=== PATIENT | female | born 1970 | race Caucasian/White ===

== ENCOUNTER → 2016-08-11 | Outpatient (CLI) | payer BC ==
--- NOTE | 2016-08-14 14:54 | XR ---
Left shoulder HISTORY: Pain 3 views of the left shoulder No comparisons Bone mineralization and alignment are maintained. Mild joint space loss of the glenohumeral joint, le ft lung apex as visualized is normal. IMPRESSION: No acute abnormality. There may be some mild joint space loss, shoulder MRI may be of shayy efit
--- NOTE | 2016-08-14 14:55 | XR ---
Lumbosacral spine HISTORY: Chronic low back pain 5 views of the lumbosacral spine There is no spondylolysis or spondylolisthesis. Lumbar vertebral bodies show preserved height and ali gnment, bone mineralization. There is loss of disc height L4-5, associated spondylosis. Sclerosis pre sent in the posterior elements. There is a mild spinal curvature. IMPRESSION: Degenerative disc disease.
--- NOTE | 2016-08-14 14:56 | XR ---
Cervical spine HISTORY: Neck pain 5 views of the cervical spine cervical vertebral bodies show preserved height and bone mineralization. There is some foraminal encr oachment due to lateral extension endplate disc complex C5-6 bilaterally. There is reversal the rosa l cervical lordosis. Minimal anterolisthesis grade 1 C4-5. Loss of disc height C5-6 with associated s pondylosis. Odontoid view is somewhat limited. There is facet arthropathy. IMPRESSION: Degenerative disc disease. Loss of lordosis may be due to muscle spasm.
== END ==
LOC: RADXRYALE 10:41
PROVIDERS: ATTEND Internal Medicine
DX: M51.36 Other intervertebral disc degeneration, lumbar region (principal); M25.512 Pain in left shoulder; M50.30 Other cervical disc degeneration, unspecified cervical region
CPT/HCPCS: 72050; 72110

== ENCOUNTER → 2017-11-14 | Outpatient (CLI) | payer BC ==
--- NOTE | 2017-11-14 11:30 | US ---
EXAMINATION TYPE: US abdomen comp/pelvis limited DATE OF EXAM: 11/14/2017 COMPARISON: NONE CLINICAL HISTORY: R39.11 Urinary hesitancy,R10.11 Rt upper quad pain. RUQ pain, increase urine freque ncy with the feeling bladder doesn't completely empty. NPO. EXAM MEASUREMENTS: Liver Length: 19.3 cm Gallbladder Wall: 0.2 cm CBD: 0.6 cm CHD: 0.4 cm Spleen: 10.5 cm Right Kidney: 10.9 x 5.3 x 3.9 cm Left Kidney: 11.2 x 4.7 x 5.5 cm Post Void Residual: 168.3 mL Pancreas: wnl, main pancreatic duct = 1.9 mm Liver: Enlarged. Echogenic. Appears course. Gallbladder: wnl CBD: wnl CHD: wnl Spleen: wnl Right Kidney: wnl Left Kidney: wnl Upper IVC: wnl Abd Aorta: wnl Bladder: distended, wnl Bilateral Jets Seen Abnormal Post Void Residual (normal less than 50ml) Urinary bladder is sonolucent. IMPRESSION: 1. Mild hepatomegaly with mild fatty infiltration.
== END | disposition home or self-care (01) ==
LOC: RADUSWWP 08:19
PROVIDERS: ATTEND Internal Medicine
DX: K76.0 Fatty (change of) liver, not elsewhere classified (principal); R16.0 Hepatomegaly, not elsewhere classified; R10.11 Right upper quadrant pain; R39.11 Hesitancy of micturition
CPT/HCPCS: 76700; 76857

== ENCOUNTER → 2020-06-28 | Outpatient (CLI) | payer BC ==
--- NOTE | 2020-06-29 10:45 | US ---
EXAMINATION TYPE: US pelvis complete transvag DATE OF EXAM: 06/28/2020 COMPARISON: US 05/19/2015 CLINICAL HISTORY: N92.1 MENORRHAGIA WITH IRREG CYCLES. TECHNIQUE: . Transabdominal sonographic images of the pelvis were acquired. Transvaginal sonographi c images were medically necessary to better assess the following anatomy: uterus and ovaries Date of LMP: Unsure EXAM MEASUREMENTS: Uterus: 8.9 x 4.4 x 5.2 cm Endometrial Stripe: 1.4 cm Right Ovary: 4.1 x 3.2 x 2.5 cm Left Ovary: 2.4 x 1.6 x 2.4 cm 1. Uterus: Anteverted Heterogeneous 2. Endometrium: Upper limits of normal 3. Right Ovary: Cystic area visualized measuring 2.5 x 2.1 x 2.0 cm 4. Left Ovary: Cystic area visualized measuring 1.3 cm 5. Bilateral Adnexa: wnl 6. Posterior cul-de-sac: wnl IMPRESSION: 1. Nonspecific uterine heterogeneity. 2. Nonspecific ovarian lesions may reflect functional ovarian cysts and this can be confirmed with ul trasound in 6 weeks.
== END | disposition home or self-care (01) ==
LOC: RADUSWWP 15:24
PROVIDERS: ATTEND Internal Medicine
DX: N92.1 Excessive and frequent menstruation with irregular cycle (principal)
CPT/HCPCS: 76830; 76856

== ENCOUNTER → 2020-09-01 | Outpatient (CLI) | payer BC ==
[2020-09-01 14:33] LABS: Basophils % (A) 1 %; Eosinophils # (A) 0.1 k/uL (0-0.7); Eosinophils % (A) 2 %; HCT 37.9 % (34.0-46.0); HGB 12.6 gm/dL (11.4-16.0); Lymphocytes # (A) 2.1 k/uL (1.0-4.8); Lymphocytes % (A) 28 %; MCH 29.4 pg (25.0-35.0); MCHC 33.3 g/dL (31.0-37.0); MCV 88.4 fL (80.0-100.0); Mean Platelet Volume 9.3; Monocytes # (A) 0.6 k/uL (0-1.0); Monocytes % (A) 8 %; Neutrophils # (A) 4.6 k/uL (1.3-7.7); Neutrophils % (A) 60 %; Platelet Count 256 k/uL (150-450); RBC 4.29 m/uL (3.80-5.40); RDW 14.1 % (11.5-15.5); WBC 7.7 k/uL (3.8-10.6)
== END | disposition home or self-care (01) ==
LOC: LABPAT 13:09
PROVIDERS: ATTEND Obstetrics & Gynecology
DX: Z01.818 Encounter for other preprocedural examination (principal); N92.0 Excessive and frequent menstruation with regular cycle
CPT/HCPCS: 85025

== ENCOUNTER 2020-09-07 06:19 | Day surgery (SDC) | payer BC ==
[2020-09-02 13:29] VITALS: BMI 32.1
[~2020-09-07 06:19] MED LIST: DEXAMETHASONE SOD PHOSPHATE 4 MG/ML 1 ML VIAL IV ONE; LACTATED RINGERS 1,000 ML IV SCH; LIDOCAINE 1% (10MG/ML) FOR IV START INTRADERMA PRN; MIDAZOLAM 2 MG/2 ML VIAL IV PRN; ONDANSETRON 4 MG/2 ML VIAL IVP ONE; Pre Op ABX Message 1 EACH MISC MISCELLANE ONE
[2020-09-07] MEDS ORDERED: PROPOFOL 10 MG/ML 20 ML VIAL IV ONE (07:10)
[2020-09-07] MEDS ORDERED: KETOROLAC 15 MG/ML 1 ML VIAL ONE (07:10)
[2020-09-07] MEDS ORDERED: MIDAZOLAM 2 MG/2 ML VIAL ONE (07:10)
[2020-09-07] MEDS ORDERED: LIDOCAINE 1% INJ 10MG/ML (20 ML MDV) ONE (07:10)
[2020-09-07] MEDS ORDERED: fentaNYL (PF) 50 MCG/ML 2 ML AMP ONE (07:10)
[2020-09-07] MEDS: HYDROmorphone 0.5 MG/0.5 ML SYRINGE IVP PRN ×3 (08:15→08:50)
--- NOTE | 2020-09-07 08:21 | P.OP ---
Date of Procedure: 09/07/20 Preoperative Diagnosis: Menorrhagia Postoperative Diagnosis: Same, grade 3 uterine prolapse Procedure(s) Performed: Hysteroscopy, NovaSure endometrial ablation Anesthesia: GETA Surgeon: Lovely Hoffmann Estimated Blood Loss (ml): 10 IV fluids (ml): 300 Urine output (ml): 50 Pathology: none sent Condition: stable Disposition: PACU Operative Findings: Essentially normal-appearing uterine cavity, grade 2-3 uterine prolapse Description of Procedure: Patient is brought to the [facility] and suite where a general anesthetic is administered without difficulty. The appropriate timeout is performed to assure proper patient and procedural identification. Urine hCG is negative. Bladder is drained for approximately 50 mL of clear yellow urine. The perineal body is prepped and draped in usual sterile fashion. Examination under anesthesia reveals a small mobile anteverted uterus, negative adnexa bilaterally, grade 2-3 uterine prolapse. Weighted speculum was placed into the vagina and the anterior lip of the cervix is grasped with a double-tooth tenaculum. Uterus sounds to a depth of 9 cm in the anteverted position. The uterus is then gently and systematically dilated through the endocervical canal using Hanks dilators. Hysteroscope was placed and the cavity is diffused using sterile saline. Inspection of the cavity reveals a small amount of proliferative-type appearing tissue, no polyps fibroids or defects. Hysteroscope was removed. NovaSure wand is placed and seated properly. A uterine width of 4.6 cm, length 6.5 cm is measured and calibrated. The machine is properly enabled. For 53 seconds and a power of 164 W the procedure is carried out. When the machine shuts off the wand is reduced and removed. Hysteroscope was once again placed and the cavity is noted to be thoroughly blanched. All sponge needle and instrument counts are correct. Patient is brought back to the recovery room in very good condition with stable vital signs including a blood pressure 136/54, pulse 67, 99% O2 saturation. She is given Toradol prior to leaving the operative suite. She will follow-up with me in the office in 2 weeks.
[2020-09-07 08:44] VITALS: TEMP 96.8
[2020-09-07 09:16] VITALS: PULSE 89
[2020-09-07 09:48] VITALS: BP 150/85; RESP 18
== END 2020-09-07 09:49 | disposition home or self-care (01) ==
LOC: OR 06:19
PROVIDERS: ATTEND Obstetrics & Gynecology
DX: N92.0 Excessive and frequent menstruation with regular cycle (principal); N81.3 Complete uterovaginal prolapse; R93.89 Abnormal findings on diagnostic imaging of other specified body structures; F17.290 Nicotine dependence, other tobacco product, uncomplicated; Z79.3 Long term (current) use of hormonal contraceptives; Z79.899 Other long term (current) drug therapy; Z98.51 Tubal ligation status
CPT/HCPCS: 81025; 58563; J2250; J1100; J2405; J2001; J3010; J1885; J2704; J1170

== ENCOUNTER 2021-06-29 21:32 | Emergency (ER) | payer BC ==
[2021-06-29 21:38] VITALS: BP 144/79; PULSE 110; RESP 20; TEMP 98.8
[2021-06-29] MEDS ORDERED: methylPREDNISolone SOD SUCCI 125 MG/2 ML VIAL IM ONE (21:50)
[2021-06-29] MEDS ORDERED: diphenhydrAMINE 50 MG CAP PO STA (21:50)
[2021-06-29] MEDS ORDERED: FAMOTIDINE 20 MG TAB PO STA ×2 (21:50→21:51)
--- NOTE | 2021-06-29 21:54 | ED ---
General Adult HPI - General Chief complaint: Allergic Reaction Stated complaint: Allergic Reaction Source: patient Mode of arrival: ambulatory - History of Present Illness Initial comments: Patient is a 50-year-old female with no significant past medical history or ALLERGIES presents emergency department concern for an ALLERGIC reaction. Patient has had an urticaria that is pruritic for greater than 24 hours. She states it started when she did have [place] buffet. She believes it is secondary to shrimp. No known prior ALLERGY to shrimp. She been taking Benadryl with minimal long-term improvement of the rash or pruritus. States it is slightly worse. She has an urticaria rash located on bilateral arms, abdomen, back. It is itchy. Denies any nausea, vomiting, diarrhea. Denies any difficulty breathing, wheezing, shortness of breath. Denies any chest pain. His no other acute trauma to this time. Has been taking Benadryl every 5 hours or so with minimal relief. Presents to the emergency department for further evaluation.The patient did attempt to use an EpiPen at home with minimal or no improvement in her skin rash and itchiness. - Related Data Home Medications Medication Instructions Recorded Confirmed Ttcytwo-Tjdl-Gudz [id number] 1 each PO Q7D PRN 09/02/20 09/02/20 [Excedrin] l-Norgest/E.estradiol-E.estrad 1 each PO DAILY 09/02/20 09/07/20 [Seasonique 0.15-0.03-0.01 Tab] Previous Rx's Medication Instructions Recorded EPINEPHrine (Auto Inject) [Epipen] 0.3 mg IM ONCE PRN #1 each 06/29/21 Famotidine [Pepcid] 20 mg PO BID 5 Days #10 tablet 06/29/21 predniSONE [Deltasone] 40 mg PO DAILY 5 Days #10 tab 06/29/21 Allergies Allergy/AdvReac Type Severity Reaction Status Date / Time No Known Allergies Allergy Verified 06/29/21 21:38 Review of Systems ROS Statement: Those systems with pertinent positive or pertinent negative responses have been documented in the HPI. Review of Systems: CONST: Denies fever EYES: Denies blurry vision ENT: Denies nasal congestion C/V: Denies Chest pain RESP: Denies shortness of breath GI: Denies abdominal pain : Denies dysuria SKIN: Endorses pruritic rash MSK: Denies joint pain. NEURO: Denies headache ROS Other: All systems not noted in ROS Statement are negative. Past Medical History Past Medical History: Atrial Flutter Additional Past Medical History / Comment(s): Vaginal bleeding for approx. 3 months History of Any Multi-Drug Resistant Organisms: None Reported Past Surgical History: Tonsillectomy, Tubal Ligation Past Anesthesia/Blood Transfusion Reactions: No Reported Reaction Past Psychological History: No Psychological Hx Reported Smoking Status: Former smoker Past Alcohol Use History: None Reported Past Drug Use History: None Reported - Past Family History Mother Family Medical History: No Reported History General Exam - General Exam Comments Initial Comments: General: Appears in mild discomfort secondary to itchy rash. HEAD: Normal with no signs of head trauma. EYES: PERRLA, EOMI, conjunctiva normal, no discharge. Pupils are 3 mm and equal bilaterally. ENT: Hearing grossly intact, normal oropharynx. No intraoral edema, including normal exam of the posterior oropharynx, tongue, floor of the mouth. No stridor auscultated. No lip swelling. RESPIRATORY: Clear breath sounds bilaterally. No wheezes, rales, or rhonchi. No hypoxia. No increased work of breathing. C/V: Mildly tachycardic while in triage, which is somewhat improved my evaluate her. Palpable pulses at approximately 100 beats per minute. Peripheral pulses 2+ and intact throughout. S1 and S2 auscultated. ABD: Abd is soft, nontender, nondistended EXT: Normal range of motion, no obvious deformity SKIN: Patient has an urticarial rash located diffusely over her bilateral upper extremities, abdomen, back. No signs of infection. Subjectively pruritic per patient. NEURO: Alert and oriented 4. No focal deficits. Course Vital Signs 06/29/21 21:33 Temperature 98.8 F Pulse Rate 110 H Respiratory 20 Rate Blood Pressure 144/79 O2 Sat by Pulse 97 Oximetry Medical Decision Making - Medical Decision Making Based on patient's presentation and physical exam, do believe she is having a skin ALLERGIC reaction has been ongoing for the last 1+ days. She is currently not experiencing anaphylaxis. I discussed this with the patient as well as her . We will treat the patient for her rash with a dose of IM solumedrol, as well as by mouth Pepcid and Benadryl here in the department. She will rece micha prescriptions for both Pepcid and prednisone, and I recommend she continue the Benadryl. She does not require EpiPen usage at this time, and they attempted to use an EpiPen at home to see if that would improve her skin rash with minimal or no improvement. I will refill the EpiPen that these at home. I recommended that she follow up with her PCP and return to the emergency department if symptoms worsen. Patient was in agreement this plan. I will provide the patient with a prescription for Pepcid, prednisone. I instructed the patient to follow up with their PCP in the next 3 days. I explained that the patient should return to the emergency department if they experience any worsening symptoms. Strict return precautions were discussed with the patient. The patient expressed understanding of these instructions. I answered all questions that the patient had. The patient was discharged home in good condition with their prescriptions and follow up information. Disposition Clinical Impression: Allergic reaction Disposition: HOME SELF-CARE Condition: Good Instructions (If sedation given, give patient instructions): Food Allergy (ED) Prescriptions: predniSONE [Deltasone] 40 mg PO DAILY 5 Days #10 tab EPINEPHrine (Auto Inject) [Epipen] 0.3 mg IM ONCE PRN #1 each PRN Reason: Anaphylaxis Famotidine [Pepcid] 20 mg PO BID 5 Days #10 tablet Is patient prescribed a controlled substance at d/c from ED?: No Referrals: Randi Dickson MD [Primary Care Provider] - 1-2 days
== END 2021-06-29 22:09 | disposition home or self-care (01) ==
LOC: EC 21:32
DX: T78.40XA Allergy, unspecified, initial encounter (principal); L50.9 Urticaria, unspecified; I48.92 Unspecified atrial flutter; Z87.891 Personal history of nicotine dependence; Z79.82 Long term (current) use of aspirin; Z79.899 Other long term (current) drug therapy
CPT/HCPCS: 99283; 96372; J2930

== ENCOUNTER → 2021-12-05 | Outpatient (CLI) | payer BC ==
--- NOTE | 2021-12-05 10:21 | US ---
EXAMINATION TYPE: US liver DATE OF EXAM: 12/05/2021 COMPARISON: US 2018 CLINICAL HISTORY: R94.5 Abnormal Liver functions. EXAM MEASUREMENTS: Liver Length: 18.5 cm Gallbladder Wall: 0.2 cm CBD: 0.3 cm Right Kidney: 11.2 x 4.1 x 5.1 cm Pancreas: visualized portions wnl, limited by overlying midline bowel gas Liver: borderline enlarged, attenuating, heterogeneous Gallbladder: wnl Evidence for sonographic Briceno's sign: no CBD: wnl Right Kidney: wnl IMPRESSION: Heterogeneous hyperechoic appearance of liver consistent with diffuse fatty infiltration and/or underlying hepatocellular disease.
== END | disposition home or self-care (01) ==
LOC: RADUSWWP 09:35
PROVIDERS: ATTEND Internal Medicine
DX: K76.0 Fatty (change of) liver, not elsewhere classified (principal)
CPT/HCPCS: 76705

== ENCOUNTER → 2022-04-04 | Outpatient (CLI) | payer BC ==
--- NOTE | 2022-04-04 16:02 | BD ---
EXAMINATION TYPE: Axial Bone Density DATE OF EXAM: 04/04/2022 COMPARISON: NONE CLINICAL HISTORY: 51 years year old Female. ICD-10 CODE: N59.8 MENOPAUSAL AND OTHER SPECIFIED MENOPA USAL AND PERIMENO Height: 5'8 Weight: 218 FRAX RISK QUESTIONS: Secondary Osteoporosis: RISK FACTORS HISTORY OF: Postmenopausal woman: y MEDICATIONS: Additional Medications:irregular heart beat , Additional History: EXAM MEASUREMENTS: Bone mineral densitometry was performed using the [employer] System. Bone mineral density as measured about the Lumbar spine is: ----- L1-L4(G/cm2): 1.217 T Score Values are as follows: ----- L1: 0.2 ----- L2: 0.1 ----- L3: -0.3 ----- L4: 1.0 ----- L1-L4: 0.3 Bone mineral density about the R hip (g/cm2): 0.966 Bone mineral density about the L hip (g/cm2): 0.966 T Score values are as follows: -----R Neck: -0.5 -----L Neck: -0.5 -----R Total: 0.5 -----L Total: 0.3 FRAX%s: The graph provided illustrates a 4.6% chance for a major osteoporotic fx and a 0.1% chance fo r the hips probability for fx in 10 years time. IMPRESSION: Normal (Values between +1 and -1 indicate normal bone mass). Consider repeating this study in 5 year s or sooner if there is some new clinical indication. NOTE: T-SCORE=SD OF THE YOUNG ADULT MEAN.
--- NOTE | 2022-04-05 08:26 | MM ---
Reason for Exam: Screening (asymptomatic). Last mammogram was performed 6 year(s) and 10 month(s) ago. Patient History: Menarche at age 11. First Full-Term at age 18. Postmenopausal. Risk Values: Essence 5 year model risk: 1.0%. NCI Lifetime model risk: 7.7%. Prior Study Comparison: 10/18/2011 Bilateral Screening Mammogram, [facility]. 05/19/2014 Bilateral Screening Mammogram, [facility]. 06/08/2015 Bilateral Screening Mammogram, [facility]. Tissue Density: There are scattered fibroglandular densities. Findings: Analyzed By CAD. There is no suspicious group of microcalcifications or new suspicious mass in either breast. Overall Assessment: Negative, BI-RAD 1 Management: Screening Mammogram of both breasts in 1 year. A clinical breast exam by your physician is recommended on an annual basis and results should be correlated with mammographic findings. Electronically signed and approved by: Manuel Maciel M.D. Radiologis
== END | disposition home or self-care (01) ==
LOC: RADMAMWWP 13:52
PROVIDERS: ATTEND Internal Medicine
DX: Z12.31 Encounter for screening mammogram for malignant neoplasm of breast (principal); N95.8 Other specified menopausal and perimenopausal disorders
CPT/HCPCS: 77063; 77067; 77080

== ENCOUNTER → 2022-09-25 | Outpatient (CLI) | payer BC ==
--- NOTE | 2022-09-25 10:45 | US ---
EXAMINATION TYPE: US abdomen complete DATE OF EXAM: 09/25/2022 COMPARISON: US Abdomen 2018 CLINICAL INDICATION: Female, 52 years old with history of R10.9 ABN PAIN, R10.2 PELVIC PAIN; Intermit tent RLQ pain TECHNIQUE: Multiple sonographic images of the abdomen are obtained. FINDINGS: EXAM MEASUREMENTS: Liver Length: 19.5 cm Gallbladder Wall: 0.2 cm CBD: 0.3 cm Spleen: 13.0 cm Right Kidney: 11.1 x 4.8 x 5.7 cm Left Kidney: 12.3 x 5.2 x 5.7 cm Pancreas: visualized portions wnl, tail limited by overlying midline bowel gas Liver: enlarged, attenuating, mildly heterogeneous Gallbladder: wnl Evidence for sonographic Briceno's sign: no CBD: visualized portions wnl, limited by overlying bowel gas Spleen: 1.7 x 1.3 x 1.4cm hyperechoic area Right Kidney: wnl Left Kidney: wnl Upper IVC: wnl Abd Aorta: wnl Hepatomegaly and heterogeneous hyperechoic appearance of liver redemonstrated. The intrahepatic port ion of the IVC and proximal abdominal aorta are within normal limits. There is no evidence of cholel ithiasis. Common bile duct is unremarkable. The visualized portions of the pancreas are homogenous. The spleen shows 1.7 x 1.3 cm hyperechoic round lesion inferiorly and centrally not identified on p rior. Kidneys are symmetric and free of hydronephrosis. No renal lesions are seen. IMPRESSION: No acute findings seen to account for patient's symptoms of right lower quadrant pain. He patomegaly with suspected diffuse fatty infiltration of liver redemonstrated. Mild splenomegaly with nonspecific 1.6 cm hyperechoic lesion, lesion favor benign based on size and splenic location.
--- NOTE | 2022-09-25 10:47 | US ---
EXAMINATION TYPE: US pelvic complete DATE OF EXAM: 09/25/2022 COMPARISON: US pelvis June 28 2020 CLINICAL INDICATION: Female, 52 years old with history of R10.9 ABN PAIN, R10.2 PELVIC PAIN; Intermit tent RLQ pain, uterine ablation 2020, tubal ligation 1994 TECHNIQUE: . Transabdominal sonographic images of the pelvis were acquired. Date of LMP: 2020 EXAM MEASUREMENTS: Uterus: 8.4 x 4.1 x 4.3 cm Endometrial Stripe: 0.3 cm Right Ovary: 2.6 x 1.6 x 2.1 cm Left Ovary: 2.3 x 1.9 x 2.2 cm 1. Uterus: anteverted, heterogeneous 2. Endometrium: appears wnl 3. Right Ovary: wnl 4. Left Ovary: 1.4 x 1.3 x 1.3cm hypoechoic area 5. Bilateral Adnexa: wnl 6. Posterior cul-de-sac: wnl Heterogeneous anteverted uterus. Endometrial stripe measures normal. No free fluid in pelvis. Both ovaries seen and symmetric and normal in size with 1.3 cm simple thin-walled cyst in the periphe ry of the left ovary incidentally noted. No suspicious extra ovarian adnexal masses. IMPRESSION: No suspicious adnexal mass to account for patient's symptoms of right sided pain
== END | disposition home or self-care (01) ==
LOC: RADUSWWP 09:38
PROVIDERS: ATTEND Internal Medicine
DX: R16.2 Hepatomegaly with splenomegaly, not elsewhere classified (principal); R10.2 Pelvic and perineal pain; R10.31 Right lower quadrant pain
CPT/HCPCS: 76700; 76856

== ENCOUNTER 2023-11-23 05:56 | Emergency (ER) | payer BC ==
[2023-11-23 06:03] VITALS: TEMP 97.6
[2023-11-23] MEDS: SODIUM CHLORIDE 0.9% 1,000 ML IV STA (06:25)
--- NOTE | 2023-11-23 06:26 | ED ---
Chest Pain HPI - General Chief Complaint: Chest Pain Stated Complaint: Chest Pain Time Seen by Provider: 11/23/23 06:09 Source: patient, family, RN notes reviewed Mode of arrival: wheelchair Limitations: no limitations - History of Present Illness Initial Comments: This is a 53-year-old female who presents to the emergency department for chest pain and palpitations. States that it started at approximately 4 AM. The chest pain is described as a centralized pressure. She has minor shortness of breath associated with this. When the EKG was obtained it demonstrated a- flutter. Patient states that she has had bouts of palpitations related to a-fib/a-flutter in the past, however they have never been sustained long enough to be caught on a monitor or EKG. Additionally, states that whenever she has these bouts of a-fib/flutter she always develops chest pain/pressure. She does take metoprolol. She is not on any blood thinners. She had a stress test 1 to 2 years ago that she states was inconclusive. Unsure if she has ever had an echocardiogram. MD Complaint: chest pain - Related Data Home Medications Medication Instructions Recorded Confirmed [id number]-[id number] [id number] 1 each PO Q7D PRN 09/02/20 09/02/20 [Excedrin] l-Norgest/E.estradiol-E.estrad 1 each PO DAILY 09/02/20 09/07/20 [Seasonique 0.15-0.03-0.01 Tab] Previous Rx's Medication Instructions Recorded EPINEPHrine (Auto Inject) [Epipen] 0.3 mg IM ONCE PRN #1 each 06/29/21 Famotidine [Pepcid] 20 mg PO BID 5 Days #10 tablet 06/29/21 predniSONE [Deltasone] 40 mg PO DAILY 5 Days #10 tab 06/29/21 Allergies Allergy/AdvReac Type Severity Reaction Status Date / Time No Known Allergies Allergy Verified 11/23/23 06:00 Review of Systems ROS Statement: Those systems with pertinent positive or pertinent negative responses have been documented in the HPI. ROS Other: All systems not noted in ROS Statement are negative. Past Medical History Past Medical History: Atrial Flutter Additional Past Medical History / Comment(s): Vaginal bleeding for approx. 3 months History of Any Multi-Drug Resistant Organisms: None Reported Past Surgical History: Tonsillectomy, Tubal Ligation Past Anesthesia/Blood Transfusion Reactions: No Reported Reaction Past Psychological History: No Psychological Hx Reported Smoking Status: Former smoker Past Alcohol Use History: Occasional Past Drug Use History: None Reported - Past Family History Mother Family Medical History: No Reported History General Exam Limitations: no limitations General appearance: alert, in no apparent distress Head exam: Present: atraumatic, normocephalic, normal inspection Respiratory exam: Present: normal lung sounds bilaterally. Absent: respiratory distress, wheezes, rales, rhonchi, stridor Cardiovascular Exam: Present: tachycardia, irregular rhythm Neurological exam: Present: alert, oriented X3, CN II-XII intact Psychiatric exam: Present: normal affect, normal mood Skin exam: Present: warm, dry, intact, normal color. Absent: rash Course Vital Signs 11/23/23 11/23/23 11/23/23 06:00 06:20 08:02 Temperature 97.6 F Pulse Rate 148 H 75 64 Respiratory 18 16 20 Rate Blood Pressure 148/108 133/87 134/84 O2 Sat by Pulse 99 97 97 Oximetry Chest Pain MDM - MDM This is a 53 year old female who presents to the emergency department for chest pain and palpitations. Was pt. sent in by a medical professional or institution? @ -No Did you speak to anyone other than the patient for history? @ -No Did you review nursing and triage notes? @ -Yes, and I agree, it is accurate with regards to the patient's symptoms. Were old charts reviewed? @ -No Differential Diagnosis? @ -Differential Chest Pain: Stable Angina, Unstable Angina, STEMI, NSTEMI Aortic Dissection, Pneumothorax, Musculoskeletal, Esophageal Spasm GERD, Cholecystitis, Pancreatitis, Zoster, this is not meant to be an all-inclusive list. EKG interpreted by me (3pts min.)? @ -EKG interpreted by me demonstrating the following: A flutter with RVR. Ventricular rate 144 bpm, QRS duration 114 ms, QTc 405 ms. X-rays interpreted by me (1pt min.)? @ -Chest x-ray obtained, my interpretation identifies no localized c onsolidations or infiltrates. CT interpreted by me (1pt min.)? @ -Not obtained U/S interpreted by me (1pt. min.)? @ -Not obtained What testing was considered but not performed? (CT, X-rays, U/S, labs)? Why? @ -None What meds were considered but not given? Why? @ -None Did you discuss the management of the patient with other professionals? @ -No Did you reconcile home meds? @ -No Was smoking cessation discussed for >3mins.? @ -No Was critical care preformed (if so, how long)? @ -No Were there social determinants of health that impacted care today? How? (Homelessness, low income, unemployed, alcoholism, drug addiction, transportation, low edu. Level, literacy, decrease access to med. care, [facility], rehab)? @ -No Was there de-escalation of care discussed even if they declined? (Discuss DNR or withdrawal of care, Hospice)? @ -No What co-morbidities impacted this encounter? (DM, HTN, Smoking, COPD, CAD, Cancer, CVA, Hep., AIDS, mental health diagnosis, sleep apnea, morbid obesity)? @ -A-flutter, HLD Was patient admitted / discharged? @ -Discharged. Lab work unremarkable including a negative troponin and negative D-dimer. Chest x-ray reveals no acute process. On arrival to the emergency department the patient was in a-flutter with a heart rate sustained in the 140s. She got up to use the bathroom and converted to sinus rhythm on her own. She then maintained a heart rate in the 60s to 70s. She was given IV fluids but did not otherwise require any medication in the emergency department. Patient's [id number] score was calculated and she scores a 1 based on the female sex. She has a history of hyperlipidemia but does not have a history of CHF, hypertension, DM, previous stroke/TIA, or vascular disease. In this case, anticoagulation is not currently recommended. Advised that she can start taking a baby aspirin daily. Additionally, because she was able to convert to sinus rhythm on her own and symptoms essentially resolved, she can be discharged home with outpatient cardiology follow-up. Patient was in agreement with this plan and was discharged home in stable condition with strict return parameters. Undiagnosed new problem with uncertain prognosis? @ -None Drug Therapy requiring intensive monitoring for toxicity (Heparin, Nitro, Insulin, Cardizem)? @ -None Were any procedures done? @ -None Diagnosis/symptom? @ -Atrial fibrillation Acute, or Chronic, or Acute on Chronic? @ -Acute Uncomplicated (without systemic symptoms) or Complicated (systemic symptoms)? @ -Uncomplicated Side effects of treatment? @ -None Exacerbation, Progression, or Severe Exacerbation] @ -Not applicable Poses a threat to life or bodily function? @ -Unlikely at this time Return precautions reviewed in depth, the patient is instructed to return to the emergency department with any new, worsening, or concerning symptoms. Patient verbalized understanding. This case was discussed in detail with the attending ED physician, Dr. Romero. Presentation, findings, and treatment plan discussed in detail as well. Disposition Clinical Impression: Atrial fibrillation Disposition: HOME SELF-CARE Instructions (If sedation given, give patient instructions): A-fib (Atrial Fibrillation) (ED) Additional Instructions: Return to the emergency department with any new, worsening, or concerning symptoms. Begin taking a baby aspirin daily. Contact cardiology for a follow- up appointment. Follow up with your primary care provider in 1-2 days. Is patient prescribed a controlled substance at d/c from ED?: No Referrals: Randi Dickson MD [Primary Care Provider] - 1-2 days Johnathon King MD [STAFF PHYSICIAN] - 1-2 days Time of Disposition: 07:42
[2023-11-23 06:48] LABS: Basophils # (A) 0.1 k/uL (0-0.2); Basophils % (A) 1 %; Eosinophils # (A) 0.2 k/uL (0-0.7); Eosinophils % (A) 2 %; HCT 46.6 % (34.0-46.0); Lymphocytes # (A) 3.5 k/uL (1.0-4.8); Lymphocytes % (A) 39 %; MCH 30.8 pg (25.0-35.0); MCHC 32.3 g/dL (31.0-37.0); MCV 95.6 fL (80.0-100.0); Mean Platelet Volume 9.2; Monocytes # (A) 0.6 k/uL (0-1.0); Monocytes % (A) 6 %; Neutrophils # (A) 4.4 k/uL (1.3-7.7); Neutrophils % (A) 49 %; Platelet Count 238 k/uL (150-450); RBC 4.87 m/uL (3.80-5.40); RDW 13.1 % (11.5-15.5)
[2023-11-23 07:00] LABS: ALT 26 U/L (4-34); AST 28 U/L (14-36); African American GFR (CKD) >90 (>60 ml/min/1.73 sqM); Albumin 4.9 g/dL (3.5-5.0); Alkaline Phosphatase 128 U/L (38-126); Anion Gap 10 mmol/L; Blood Urea Nitrogen 17 mg/dL (7-17); Calcium 10.2 mg/dL (8.4-10.2); Carbon Dioxide 26 mmol/L (22-30); Chloride 107 mmol/L (98-107); Glucose 120 mg/dL (74-99); Magnesium 1.9 mg/dL (1.6-2.3); Non-African American GFR(CKD) >90 (>60 ml/min/1.73 sqM); Potassium 4.2 mmol/L (3.5-5.1); Sodium 143 mmol/L (137-145); Total Bilirubin 0.4 mg/dL (0.2-1.3); Total Protein 7.9 g/dL (6.3-8.2)
[2023-11-23 07:08] LABS: NT-Pro-B-Type Natriuretic Pept 213 pg/mL
[2023-11-23 07:14] LABS: INR 0.9 (<1.2); Prothrombin Time 10.1 sec (10.0-12.5)
--- NOTE | 2023-11-23 07:25 | XR ---
Lisa León EXAMINATION TYPE: Chest X-ray 2 Views DATE OF EXAM: 11/23/2023 CLINICAL HISTORY: Chest pain. TECHNIQUE: Frontal and lateral views of the chest are obtained. COMPARISON: None FINDINGS: There is no focal air space opacity, pleural effusion, or pneumothorax seen. The cardiac silhouette size is within normal limits. The osseous structures are intact. Overlying EKG leads are present. IMPRESSION: No acute process.
[2023-11-23] MEDS: DILTIAZEM DRIP BOLUS FROM BAG 1 MG SOLN IV ONE (08:01)
[2023-11-23] MEDS: DILTIAZEM 125 MG in SODIUM CHLORIDE 0.9% 100 ML IV SCH (08:02)
[2023-11-23 08:04] VITALS: BP 134/84; PULSE 64; RESP 20
[2023-11-23 08:42] LABS: Appearance,Urine Clear (Clear); Bilirubin,Urine Negative (Negative); Blood,Urine Negative (Negative); Color,Urine Colorless; Glucose,Urine (UA) Negative (Negative); Ketones,Urine Negative (Negative); Leukocyte Esterase,Urine Negative (Negative); Nitrite,Urine Negative (Negative); Protein,Urine Negative (Negative); Specific Gravity,Urine 1.009 (1.001-1.035); Urobilinogen,Urine <2.0 mg/dL (<2.0)
== END 2023-11-23 08:04 | disposition home or self-care (01) ==
LOC: EC 05:56
DX: I48.91 Unspecified atrial fibrillation (principal); I48.92 Unspecified atrial flutter; E78.5 Hyperlipidemia, unspecified; Z87.891 Personal history of nicotine dependence
CPT/HCPCS: 36415; 71046; 80053; 81003; 83735; 83880; 84484; 85025; 85379; 85610; 85730; 93005

== ENCOUNTER → 2024-07-24 | Outpatient (CLI) | payer BC ==
--- NOTE | 2024-07-24 09:45 | US ---
EXAMINATION TYPE: US abdomen complete DATE OF EXAM: 07/24/2024 COMPARISON: Prior abdominal ultrasound September 25, 2022 CLINICAL INDICATION: Female, 53 years old with history of R10.9 ABD PAIN; pain TECHNIQUE: Grayscale and color Doppler imaging of the abdomen was performed. FINDINGS: EXAM MEASUREMENTS: Liver Length: 18.4 cm Gallbladder Wall: .2 cm CBD: .5 cm, color Doppler imaging was utilized to isolate the common bile duct for measurement. Spleen: 12.1 cm Right Kidney: 10.6 x 4.5 x 5.5 cm Left Kidney: 11.2 x 5.2 x 5.2 cm [employer] IN[employer]CTOR NOTES: Pancreas: wnl Liver: upper limits, no dilated ducts, masses or cysts. Gallbladder: 4 mm Echogenic area seen posterior wall. Evidence for sonographic Briceno's sign: no CBD: wnl Spleen: Echogenic area seen 1.7 x 1.5 x 1.4 cm Right Kidney: wnl, No hydronephrosis, calculi or masses seen Left Kidney: wnl, No hydronephrosis, calculi or masses seen Upper IVC: wnl Abd Aorta: wnl Mild hepatomegaly is redemonstrated. The intrahepatic portion of the IVC and visualized abdominal ao rta are within normal limits. There is no evidence of shadowing mobile cholelithiasis. Possible tiny 4 mm polyp on current study. Common bile duct is unremarkable. The visualized portions of the panc reas are homogenous. The spleen is unremarkable. Kidneys are symmetric and free of hydronephrosis. No renal lesions are seen. IMPRESSION: No acute findings are present. [facility], , 07/24/2024 9:43 AM
== END | disposition home or self-care (01) ==
LOC: RADUSWWP 08:57
PROVIDERS: ATTEND Internal Medicine
DX: R10.9 Unspecified abdominal pain (principal)
CPT/HCPCS: 76700

== ENCOUNTER → 2024-08-22 | Outpatient (CLI) | payer BC ==
--- NOTE | 2024-08-22 12:16 | MM ---
Reason for Exam: Screening (asymptomatic). Last mammogram was performed 2 year(s) and 4 month(s) ago. Patient History: Menarche at age 11. First Full-Term at age 18. Postmenopausal. Patient has history of breast feeding. Risk Values: Essence 5 year model risk: 1.1%. NCI Lifetime model risk: 7.2%. Prior Study Comparison: 10/18/2011 Bilateral Screening Mammogram, [facility]. 05/19/2014 Bilateral Screening Mammogram, [facility]. 06/08/2015 Bilateral Screening Mammogram, [facility]. 04/04/2022 Bilateral MG 3D screening mammo w/cad, [facility]. Tissue Density: The breasts are heterogeneously dense, which may obscure small masses. Findings: Analyzed By CAD. There is no suspicious group of microcalcifications or new suspicious mass in either breast. Stable benign lymph node right axilla. Overall Assessment: Benign, BI-RAD 2 Management: Screening Mammogram of both breasts in 1 year. . Patient should continue monthly self-breast exams. A clinical breast exam by your physician is recommended on an annual basis. This exam should not preclude additional follow-up of suspicious palpable abnormalities. Note on Essence scores and lifetime risk: 1. A Essence score greater than 3% is considered moderate risk. If this is the case, consider specialist referral to assess eligibility for a risk reducing agent. 2. If overall lifetime risk for the development of breast cancer is 20% or higher, the patient may qualify for future screening with alternating mammogram and breast MRI. [facility], , 08/22/2024 12:13 PM. Electronically signed and approved by: Louie Coates M.D. [facility]
== END | disposition home or self-care (01) ==
LOC: RADMAMWWP 10:37
PROVIDERS: ATTEND Internal Medicine
DX: Z12.31 Encounter for screening mammogram for malignant neoplasm of breast (principal); R92.333 Mammographic heterogeneous density, bilateral breasts; Z78.0 Asymptomatic menopausal state
CPT/HCPCS: 77063; 77067